=== PATIENT | female | born 1985 | race Caucasian/White ===

== ENCOUNTER 2017-02-19 12:02 | Emergency (ER) | payer MEDICAID, OTHER, SELFPAY ==
[~2017-02-19] VITALS: Ht 167.6 cm; Wt 69.0 kg
[~2017-02-19 12:02] MED LIST: DIAZ10TA PO; DICY10CA53; TRIM300C16
[2017-02-19 12:16] VITALS: BP 126/75
[2017-02-19] MEDS ORDERED: DIPH,PERTUSS(ACELL),TET VAC/PF 0.5 ML IM-VACC ONE ×2 (12:30→12:32)
[2017-02-19] MEDS ORDERED: LIDOCAINE 1%, 20ML SQ ONE (12:30)
[2017-02-19] MEDS ORDERED: LIDOCAINE 1%, 20ML ONE (12:32)
== END 2017-02-19 13:01 | disposition home or self-care (01) ==
LOC: ED 12:40
DX: L02.414 Cutaneous abscess of left upper limb (principal); F15.129 Other stimulant abuse with intoxication, unspecified; F11.129 Opioid abuse with intoxication, unspecified; F17.200 Nicotine dependence, unspecified, uncomplicated
CPT/HCPCS: 10060

== ENCOUNTER 2021-02-04 03:17 | Emergency (ER) | payer MEDICAID ==
[~2021-02-04] VITALS: Ht 165.1 cm; Wt 55.0 kg
[2021-02-04 03:20] VITALS: BP 111/65
[2021-02-04] MEDS ORDERED: NEOSPORIN OINT. PKT 1 PACKET ONE (03:40)
== END 2021-02-04 03:49 | disposition home or self-care (01) ==
LOC: ED 03:43
DX: S90.812A Abrasion, left foot, initial encounter (principal); F17.210 Nicotine dependence, cigarettes, uncomplicated; X58.XXXA Exposure to other specified factors, initial encounter; Y93.89 Activity, other specified; Y92.89 Other specified places as the place of occurrence of the external cause; Y99.8 Other external cause status
CPT/HCPCS: 99406